=== PATIENT | female | born 1985 | race Hispanic/Latino ===

== ENCOUNTER → 2017-05-19 | Outpatient (CLI) | payer MEDICAID ==
[~2017-05-19] MED LIST: REGADENOSON 0.4 MG/5 ML PF SYG IVP SCH
== END | disposition home or self-care (01) ==
LOC: SHCH 08:07
PROVIDERS: ATTEND Internal Medicine Cardiovascular Disease
DX: Z01.810 Encounter for preprocedural cardiovascular examination (principal)
CPT/HCPCS: 78452; 93017; 93306; 96374; A9500 ×2; J2785